=== PATIENT | male | born 1940 | race Caucasian/White ===

== ENCOUNTER → 2018-07-16 | Day surgery (SDC) | payer MEDICARE ==
[2018-07-11 15:48] VITALS: BMI 31.9
[~2018-07-16] MED LIST: LACTATED RINGERS 1,000 ML IV SCH; LIDOCAINE 1% 20 ML VIAL (10MG/ML) FOR IV START INTRADERMA PRN; LIDOCAINE 1% INJ 10MG/ML (20 ML MDV) ONE; PROPOFOL 10 MG/ML 20 ML VIAL IV ONE
[2018-07-16 07:53] VITALS: TEMP 97.6
[2018-07-16 08:07] LABS: Glucose,Whole Blood 130 mg/dL (75-99)
--- NOTE | 2018-07-16 09:00 | P.PCN ---
Date of Procedure: 07/16/18 Procedure(s) Performed: Procedure: Total colonoscopy. Preoperative diagnosis: Screening for neoplasia. Postoperative diagnosis: Diverticulosis with no evidence of acute diverticulitis , strictures, polyps or cancer. Preparation: HalfLytely prep. Sedation: Was provided by anesthesia. Brief clinical history: The patient is a 78-year-old male who is scheduled for this evaluation for screening for neoplasia age being his risk factor. There is no family history of colon cancer. He has no abdominal complaints, bleeding or anemia. He had a prior colonoscopy around 5 or 6 years ago. He believes he may have had polyps removed at that time. Procedure: With the patient on his left lateral decubitus position and after informed consent and adequate sedation, the perianal area was inspected and it did not show any fissures or fistulas. There were no masses felt on digital rectal examination. The Olympus CFQ 160L video colonoscope was then inserted in the rectum in the usual fashion and advanced to the cecum. The mucosa appeared healthy. No polyps or tumors were seen. Several diverticular orifices were seen scattered on the right side but I saw no evidence of acute diverticulitis or strictures. I retroflexed the endoscope in the rectum before the endoscope was withdrawn. The patient tolerated the procedure well. Plan: The patient was reassured. Discussed dietary measures. He will follow-up with you as planned and further screening can be planned depending on his overall health in 5 years.
[2018-07-16 09:04] VITALS: RESP 16
[2018-07-16 09:09] VITALS: BP 124/74; PULSE 70
== END ==
LOC: ORWHC2ENDO 07:14
DX: Z12.11 Encounter for screening for malignant neoplasm of colon (principal); K57.30 Diverticulosis of large intestine without perforation or abscess without bleeding; I10 Essential (primary) hypertension; E78.5 Hyperlipidemia, unspecified; E11.9 Type 2 diabetes mellitus without complications; Z79.84 Long term (current) use of oral hypoglycemic drugs; R42 Dizziness and giddiness; Z87.891 Personal history of nicotine dependence; Z79.899 Other long term (current) drug therapy
CPT/HCPCS: J2001; J2704; G0121

== ENCOUNTER 2020-07-11 12:40 | Emergency (ER) | payer MEDICARE ==
[2020-07-11 12:45] VITALS: RESP 18; TEMP 98.5
--- NOTE | 2020-07-11 13:26 | ED ---
SOB HPI - General Chief Complaint: Shortness of Breath Stated Complaint: Sent by [employer] - covid pos Time Seen by Provider: 07/11/20 12:47 Source: patient, RN notes reviewed Mode of arrival: wheelchair Limitations: no limitations - History of Present Illness Initial Comments: This is a 80-year-old male with a history of type 2 diabetes childhood asthma former smoker who quit 50 years ago who states she's had a cough for the past 11 days he's had some dizziness intermittent visual issues at night he's had a weight loss of 8-9 pounds over last 11 days due to decreased appetite. No overt problems with taste or smell of her no overt fevers chills or sweats just a persistent cough. He was seen at an urgent care clinic and had a rapid test for covid 19 which was positive does have increased coughing and perhaps short of breath with exertion. No chest pain. He is concerned however because he does have a that has a history of CML and is taking care of grandchildren at home which are special needs. He has been taking zinc as well as vitamin D3 outpatient. MD Complaint: shortness of breath, cough - Related Data Home Medications Medication Instructions Recorded Confirmed Atorvastatin [Lipitor] 5 mg PO HS 07/11/18 07/16/18 Enalapril [Vasotec] 10 mg PO BID 07/11/18 07/16/18 sitaGLIPtin [Januvia] 50 mg PO BID 07/11/18 07/16/18 Previous Rx's Medication Instructions Recorded Azithromycin [Zithromax Z-pack (6 250 mg PO DIRECTED 5 Days #6 tab 07/11/20 tabs)] Allergies Allergy/AdvReac Type Severity Reaction Status Date / Time No Known Allergies Allergy Verified 07/11/20 12:45 Review of Systems ROS Statement: Those systems with pertinent positive or pertinent negative responses have been documented in the HPI. ROS Other: All systems not noted in ROS Statement are negative. Past Medical History Past Medical History: Diabetes Mellitus, Hyperlipidemia, Hypertension Additional Past Medical History / Comment(s): hx vertigo, covid History of Any Multi-Drug Resistant Organisms: None Reported Additional Past Surgical History / Comment(s): rupesh cataract sx Additional Past Anesthesia/Blood Transfusion Reaction / Comment(s): hx of vertigo Past Psychological History: No Psychological Hx Reported Smoking Status: Never smoker Past Alcohol Use History: None Reported Past Drug Use History: None Reported General Exam - General Exam Comments Initial Comments: Is a well developed well-nourished awake alert oriented times 3 male Limitations: no limitations General appearance: alert, in no apparent distress Head exam: Present: atraumatic, normocephalic, normal inspection Eye exam: Present: normal appearance, PERRL, EOMI. Absent: scleral icterus, conjunctival injection, periorbital swelling ENT exam: Present: normal exam, mucous membranes moist Neck exam: Present: normal inspection, full ROM, other (Discharge or bruits). Absent: tenderness, meningismus, lymphadenopathy Respiratory exam: Present: rhonchi (Right lower lobe rhonchi). Absent: respiratory distress, wheezes, rales, stridor Cardiovascular Exam: Present: regular rate, normal rhythm, normal heart sounds. Absent: systolic murmur, diastolic murmur, rubs, gallop, clicks GI/Abdominal exam: Present: soft, normal bowel sounds. Absent: distended, tenderness, guarding, rebound, rigid Extremities exam: Present: normal inspection, full ROM, normal capillary refill. Absent: tenderness, pedal edema, joint swelling, calf tenderness Back exam: Present: normal inspection Neurological exam: Present: alert, oriented X3, CN II-XII intact Psychiatric exam: Present: normal affect, normal mood Skin exam: Present: warm, dry, intact, normal color. Absent: rash Course Vital Signs 07/11/20 07/11/20 12:42 13:58 Temperature 98.5 F Pulse Rate 76 Respiratory 18 18 Rate Blood Pressure 163/91 O2 Sat by Pulse 98 Oximetry Medical Decision Making - Medical Decision Making I did discuss the findings with the patient patient has had symptoms going on for 11 days at this time he was Covid-19 positive on a rapid test the workup in this department demonstrates no evidence of PE but did have a mildly elevated d- dimer. He does have evidence of a right lower lobe infiltrate however. He will be treated pneumonia with appropriate antibiotics here really take supplements that later in recovery. He'll be discharged to follow-up with his doctor and return when necessary - Lab Data Result diagrams: 07/11/20 13:40 07/11/20 13:40 Lab Results 07/11/20 07/11/20 07/11/20 Range/Units 13:40 13:40 13:40 WBC 4.2 (3.8-10.6) k/uL RBC 5.04 (4.30-5.90) m/uL Hgb 15.9 (13.0-17.5) gm/dL Hct 47.6 (39.0-53.0) % MCV 94.3 (80.0-100.0) fL MCH 31.4 (25.0-35.0) pg MCHC 33.3 (31.0-37.0) g/dL RDW 12.1 (11.5-15.5) % Plt Count 158 (150-450) k/uL Neutrophils % 64 % Lymphocytes % 24 % Monocytes % 8 % Eosinophils % 2 % Basophils % 1 % Neutrophils # 2.7 (1.3-7.7) k/uL Lymphocytes # 1.0 (1.0-4.8) k/uL Monocytes # 0.4 (0-1.0) k/uL Eosinophils # 0.1 (0-0.7) k/uL Basophils # 0.0 (0-0.2) k/uL PT 9.7 (9.0-12.0) sec INR 0.9 (<1.2) APTT 22.9 (22.0-30.0) sec D-Dimer 0.93 H (<0.60) mg/L FEU Sodium 136 L (137-145) mmol/L Potassium 4.6 (3.5-5.1) mmol/L Chloride 104 (98-107) mmol/L Carbon Dioxide 26 (22-30) mmol/L Anion Gap 6 mmol/L BUN 14 (9-20) mg/dL Creatinine 0.77 (0.66-1.25) mg/dL Est GFR (CKD-EPI)AfAm >90 (>60 ml/min/1.73 sqM) Est GFR (CKD-EPI)NonAf 87 (>60 ml/min/1.73 sqM) Glucose 97 (74-99) mg/dL Plasma Lactic Acid Lawrence (0.7-2.0) mmol/L Calcium 8.6 (8.4-10.2) mg/dL Magnesium 2.1 (1.6-2.3) mg/dL Total Bilirubin 0.7 (0.2-1.3) mg/dL AST 41 (17-59) U/L ALT 52 H (4-49) U/L Alkaline Phosphatase 65 (38-126) U/L Lactate Dehydrogenase 538 (313-618) U/L Creatine Kinase 64 (55-170) U/L Troponin I (0.000-0.034) ng/mL C-Reactive Protein 9.3 (<10.0) mg/L NT-Pro-B Natriuret Pep pg/mL Total Protein 6.7 (6.3-8.2) g/dL Albumin 4.1 (3.5-5.0) g/dL Influenza Type A RNA (Not Detectd) Influenza Type B (PCR) (Not Detectd) 07/11/20 07/11/20 07/11/20 Range/Units 13:40 13:40 13:40 WBC (3.8-10.6) k/uL RBC (4.30-5.90) m/uL Hgb (13.0-17.5) gm/dL Hct (39.0-53.0) % MCV (80.0-100.0) fL MCH (25.0-35.0) pg MCHC (31.0-37.0) g/dL RDW (11.5-15.5) % Plt Count (150-450) k/uL Neutrophils % % Lymphocytes % % Monocytes % % Eosinophils % % Basophils % % Neutrophils # (1.3-7.7) k/uL Lymphocytes # (1.0-4.8) k/uL Monocytes # (0-1.0) k/uL Eosinophils # (0-0.7) k/uL Basophils # (0-0.2) k/uL PT (9.0-12.0) sec INR (<1.2) APTT (22.0-30.0) sec D-Dimer (<0.60) mg/L FEU Sodium (137-145) mmol/L Potassium (3.5-5.1) mmol/L Chloride (98-107) mmol/L Carbon Dioxide (22-30) mmol/L Anion Gap mmol/L BUN (9-20) mg/dL Creatinine (0.66-1.25) mg/dL Est GFR (CKD-EPI)AfAm (>60 ml/min/1.73 sqM) Est GFR (CKD-EPI)NonAf (>60 ml/min/1.73 sqM) Glucose (74-99) mg/dL Plasma Lactic Acid Lawrence 1.0 (0.7-2.0) mmol/L Calcium (8.4-10.2) mg/dL Magnesium (1.6-2.3) mg/dL Total Bilirubin (0.2-1.3) mg/dL AST (17-59) U/L ALT (4-49) U/L Alkaline Phosphatase (38-126) U/L Lactate Dehydrogenase (313-618) U/L Creatine Kinase (55-170) U/L Troponin I <0.012 (0.000-0.034) ng/mL C-Reactive Protein (<10.0) mg/L NT-Pro-B Natriuret Pep 64 pg/mL Total Protein (6.3-8.2) g/dL Albumin (3.5-5.0) g/dL Influenza Type A RNA (Not Detectd) Influenza Type B (PCR) (Not Detectd) 07/11/20 Range/Units 13:40 WBC (3.8-10.6) k/uL RBC (4.30-5.90) m/uL Hgb (13.0-17.5) gm/dL Hct (39.0-53.0) % MCV (80.0-100.0) fL MCH (25.0-35.0) pg MCHC (31.0-37.0) g/dL RDW (11.5-15.5) % Plt Count (150-450) k/uL Neutrophils % % Lymphocytes % % Monocytes % % Eosinophils % % Basophils % % Neutrophils # (1.3-7.7) k/uL Lymphocytes # (1.0-4.8) k/uL Monocytes # (0-1.0) k/uL Eosinophils # (0-0.7) k/uL Basophils # (0-0.2) k/uL PT (9.0-12.0) sec INR (<1.2) APTT (22.0-30.0) sec D-Dimer (<0.60) mg/L FEU Sodium (137-145) mmol/L Potassium (3.5-5.1) mmol/L Chloride (98-107) mmol/L Carbon Dioxide (22-30) mmol/L Anion Gap mmol/L BUN (9-20) mg/dL Creatinine (0.66-1.25) mg/dL Est GFR (CKD-EPI)AfAm (>60 ml/min/1.73 sqM) Est GFR (CKD-EPI)NonAf (>60 ml/min/1.73 sqM) Glucose (74-99) mg/dL Plasma Lactic Acid Lawrence (0.7-2.0) mmol/L Calcium (8.4-10.2) mg/dL Magnesium (1.6-2.3) mg/dL Total Bilirubin (0.2-1.3) mg/dL AST (17-59) U/L ALT (4-49) U/L Alkaline Phosphatase (38-126) U/L Lactate Dehydrogenase (313-618) U/L Creatine Kinase (55-170) U/L Troponin I (0.000-0.034) ng/mL C-Reactive Protein (<10.0) mg/L NT-Pro-B Natriuret Pep pg/mL Total Protein (6.3-8.2) g/dL Albumin (3.5-5.0) g/dL Influenza Type A RNA Not Detected (Not Detectd) Influenza Type B (PCR) Not Detected (Not Detectd) - EKG Data -: EKG Interpreted by Me EKG shows normal: sinus rhythm EKG Comments: Was sinus rhythm a 65. Interval 148 QRS duration 80 QT since QTC 390/[address]-T wave changes - Radiology Data Radiology results: report reviewed, image reviewed (I did review the imaging and report x-ray negative for acute findings CAT scan shows no evidence of PE) Disposition Clinical Impression: Right lower lobe pneumonia, COVID-19 Disposition: HOME SELF-CARE Condition: Good Instructions (If sedation given, give patient instructions): Community Acquired Pneumonia (ED), Viral Pneumonia (ED) Prescriptions: Azithromycin [Zithromax Z-pack (6 tabs)] 250 mg PO DIRECTED 5 Days #6 tab Is patient prescribed a controlled substance at d/c from ED?: No Referrals: Hansel Leal MD [Primary Care Provider] - 1-2 days
--- NOTE | 2020-07-11 13:47 | XR ---
EXAMINATION TYPE: XR chest 1V DATE OF EXAM: 07/11/2020 COMPARISON: NONE HISTORY: Difficulty breathing. Positive COVID. TECHNIQUE: Single AP portable frontal upright view of the chest is obtained. FINDINGS: There is chronic parenchymal changes bilaterally without suspicious focal air space opacit y, pleural effusion, or pneumothorax seen. Slightly elevated left hemidiaphragm. The cardiac silhouet te size is within normal limits. The osseous structures are demineralized. IMPRESSION: Chronic changes without suspicious acute infiltrate.
[2020-07-11 14:30] LABS: Basophils % (A) 1 %; Eosinophils # (A) 0.1 k/uL (0-0.7); Eosinophils % (A) 2 %; HCT 47.6 % (39.0-53.0); HGB 15.9 gm/dL (13.0-17.5); Lymphocytes % (A) 24 %; MCH 31.4 pg (25.0-35.0); MCHC 33.3 g/dL (31.0-37.0); MCV 94.3 fL (80.0-100.0); Monocytes # (A) 0.4 k/uL (0-1.0); Monocytes % (A) 8 %; Neutrophils # (A) 2.7 k/uL (1.3-7.7); Neutrophils % (A) 64 %; Platelet Count 158 k/uL (150-450); RBC 5.04 m/uL (4.30-5.90); RDW 12.1 % (11.5-15.5); WBC 4.2 k/uL (3.8-10.6)
[2020-07-11 14:46] LABS: ALT 52 U/L (4-49); AST 41 U/L (17-59); African American GFR (CKD) >90 (>60 ml/min/1.73 sqM); Albumin 4.1 g/dL (3.5-5.0); Alkaline Phosphatase 65 U/L (38-126); Anion Gap 6 mmol/L; Blood Urea Nitrogen 14 mg/dL (9-20); Calcium 8.6 mg/dL (8.4-10.2); Carbon Dioxide 26 mmol/L (22-30); Chloride 104 mmol/L (98-107); Creatine Kinase 64 U/L (55-170); Glucose 97 mg/dL (74-99); LDH 538 U/L (313-618); Magnesium 2.1 mg/dL (1.6-2.3); Non-African American GFR(CKD) 87 (>60 ml/min/1.73 sqM); Potassium 4.6 mmol/L (3.5-5.1); Sodium 136 mmol/L (137-145); Total Bilirubin 0.7 mg/dL (0.2-1.3); Total Protein 6.7 g/dL (6.3-8.2)
[2020-07-11 14:47] LABS: INR 0.9 (<1.2); Partial Thromboplastin Time 22.9 sec (22.0-30.0); Prothrombin Time 9.7 sec (9.0-12.0)
[2020-07-11 14:54] LABS: D-Dimer 0.93 mg/L FEU (<0.60)
[2020-07-11 15:00] LABS: C Reactive Protein 9.3 mg/L (<10.0)
--- NOTE | 2020-07-11 15:21 | CT ---
EXAMINATION TYPE: CT angio chest DATE OF EXAM: 07/11/2020 COMPARISON: None HISTORY: Cough, shortness of breath and dizziness. CT DLP: 470.9 mGycm Automated exposure control for dose reduction was used. CONTRAST: Performed with IV Contrast, patient injected with 64ml mL of Isovue 370. There are 3-D post processed images. There is 3 cm area of interstitial reticular infiltrate anterior right upper lobe. There is 8 x 4 cm area of subpleural interstitial infiltrate right lower lobe posteriorly adjacent to the chest wall. T here is no pleural effusion. I see no evidence of a solid pulmonary mass. There is no mediastinal adenopathy. Thoracic aorta is intact. There is no aneurysm or dissection. The re are no hilar masses. Heart size is normal. There is no pericardial effusion. There is normal contrast opacification of the pulmonary arteries. There are no filling defects. The s ternum is intact. Thoracic spine is intact. There is spurring in the thoracic spine. There is no comp ression fracture. Upper abdominal soft tissues are intact. IMPRESSION: No evidence of pulmonary embolism. Right side pulmonary interstitial infiltrate consistent with inflammatory disease.
[2020-07-11] MEDS ORDERED: cefTRIAXone IN SWFI 1,000 MG/10 ML SYRINGE IVP STA (15:41)
[2020-07-11] MEDS ORDERED: AZITHROMYCIN 500 MG TAB PO STA (15:42)
[2020-07-11 16:06] VITALS: BP 121/84; PULSE 61
[2020-07-11 23:14] LABS: Ferritin 577.4 ng/mL (22.0-322.0)
== END 2020-07-11 16:19 | disposition home or self-care (01) ==
LOC: EC 12:40
DX: U07.1 COVID-19 (principal); J18.9 Pneumonia, unspecified organism; R79.89 Other specified abnormal findings of blood chemistry; I10 Essential (primary) hypertension; E11.9 Type 2 diabetes mellitus without complications; E78.5 Hyperlipidemia, unspecified; Z79.899 Other long term (current) drug therapy; Z79.84 Long term (current) use of oral hypoglycemic drugs; Z87.891 Personal history of nicotine dependence
CPT/HCPCS: 36415; 93005; 85379; 83880; 80053; 82728; 82550; 83605; 83615; 83735; 84484; 85025; 85610; 85730; 86140; 87040; 87502; 84145; 71045; 71275; 99285; 96374; U0003; J0696; Q9967

== ENCOUNTER → 2022-10-10 | Outpatient (CLI) | payer MEDICARE | END | disposition home or self-care (01) | LOC: LABWHC1 16:31 | PROVIDERS: ATTEND Surgery Plastic and Reconstructive Surgery | DX: Z01.89 Encounter for other specified special examinations (principal); R94.31 Abnormal electrocardiogram [ECG] [EKG] | CPT/HCPCS: 36415; 93005 ==

== ENCOUNTER → 2022-10-19 | Outpatient (CLI) | payer MEDICARE ==
--- NOTE | 2022-10-19 13:55 | US ---
EXAMINATION TYPE: US groin RT DATE OF EXAM: 10/19/2022 COMPARISON: NONE CLINICAL HISTORY: K40.90 UNILATERAL INGUINAL HERNIA. TECHNIQUE: right groin scanned, left scanned for comparison FINDINGS: +++peristalsing bowel seen within the right lower quadrant, more so than left. No break s een within the abd wall, no hernia identified. IMPRESSION: Peristalsing bowel in the right lower quadrant, No evidence for hernia. Consider complet e evaluation with CT.
== END | disposition home or self-care (01) ==
LOC: RADUSWWP 13:00
PROVIDERS: ATTEND Surgery Plastic and Reconstructive Surgery
DX: K40.90 Unilateral inguinal hernia, without obstruction or gangrene, not specified as recurrent (principal)

== ENCOUNTER 2023-02-22 09:53 | Day surgery (SDC) | payer MEDICARE ==
[2023-02-20 10:52] VITALS: BMI 28.7
[~2023-02-22 09:53] MED LIST changes: +ACETAMINOPHEN TAB 500 MG TAB PO PRN; +DEXAMETHASONE SOD PHOSPHATE 4 MG/ML 1 ML VIAL IV ONE; +HEPARIN SODIUM,PORCINE/PF 5,000 UNIT/0.5 ML SYRINGE SQ PRN; +HYDROmorphone 0.5 MG/0.5 ML SYRINGE IVP PRN; +LIDOCAINE 1% (10MG/ML) FOR IV START INTRADERMA PRN; -LIDOCAINE 1% 20 ML VIAL (10MG/ML) FOR IV START INTRADERMA PRN; -LIDOCAINE 1% INJ 10MG/ML (20 ML MDV) ONE; +ONDANSETRON 4 MG/2 ML VIAL IVP ONE; +ONDANSETRON 4 MG/2 ML VIAL IVP PRN; -PROPOFOL 10 MG/ML 20 ML VIAL IV ONE; +droPERidol 5 MG/2 ML VIAL IVP ONE
[2023-02-22] MEDS ORDERED: TAMSULOSIN 0.4 MG CAP.ER.24H PO STA (10:43)
--- NOTE | 2023-02-22 10:53 | P.GSHP ---
History of Present Illness H&P Date: 02/22/23 CHIEF COMPLAINT: Inguinal hernia, right. HISTORY OF PRESENT ILLNESS: The patient is a 82-year-old male who presents with a history of swelling and pain along the right groin. He has noted increased swelling including pain of the area. Now he presents for repair of his inguinal hernia. PAST MEDICAL HISTORY: Please see list. PAST SURGICAL HISTORY: Please see list. MEDICATIONS: Please see list. ALLERGIES: Please see list. SOCIAL HISTORY: No illicit drug use FAMILY HISTORY: No reports of Crohn disease or ulcerative colitis. REVIEW OF ORGAN SYSTEMS: CONSTITUTIONAL: No reports of fevers or chills. No reports of weight loss despite prior attempts. GI: Denies any blood in stools or constipation. PHYSICAL EXAM: VITAL SIGNS: Stable GENERAL: Well-developed pleasant in no acute distress. HEENT: No scleral icterus. Extraocular movements grossly intact. Moist buccal mucosa. NECK: Supple without lymphadenopathy. CHEST: Unlabored respirations. Equal bilateral excursions. CARDIOVASCULAR: Regular rate and rhythm. Distal 2+ pulses. ABDOMEN: Soft, nondistended. No peritoneal signs. Moderate tenderness right swelling along the right groin MUSCULOSKELETAL: No clubbing, cyanosis, or edema. ASSESSMENT: 1. Inguinal hernia, right initial and symptomatic. PLAN: 1. Recommend proceeding robotic inguinal repair with mesh with possible bilateral approach. 2. Benefits and risks of surgical intervention was discussed including possibility of open technique. 3. DVT prophylaxis. 4. Antibiotic prophylaxis. 5. Non narcotic pain management including abdominal wall block described 6. Blood sugar glucose described. 7. Weight loss management described. Past Medical History Past Medical History: Diabetes Mellitus, Hyperlipidemia, Hypertension Additional Past Medical History / Comment(s): Vertigo. Dry skin. History of Any Multi-Drug Resistant Organisms: None Reported Additional Past Surgical History / Comment(s): Bilateral cataract surgery. Past Anesthesia/Blood Transfusion Reactions: No Reported Reaction Additional Past Anesthesia/Blood Transfusion Reaction / Comment(s): Vertigo. Past Psychological History: No Psychological Hx Reported Additional Psychological History / Comment(s): Anxiety about vertigo. Smoking Status: Former smoker Past Alcohol Use History: None Reported Additional Past Alcohol Use History / Comment(s): Quit smoking over 30 yrs ago. Past Drug Use History: None Reported - Past Family History Brother(s) Family Medical History: Cancer Additional Family Medical History / Comment(s): Liver cancer. Medications and Allergies Home Medications Medication Instructions Recorded Confirmed Type Atorvastatin [Lipitor] 5 mg PO HS 07/11/18 02/20/23 History Enalapril [Vasotec] 10 mg PO BID 07/11/18 02/20/23 History sitaGLIPtin [Januvia] 50 mg PO BID 07/11/18 02/20/23 History Hair Skin Nails (Unknown Dose) 1 tab PO DAILY 02/20/23 02/20/23 History Multivitamins, Thera [Multivitamin 1 tab PO DAILY 02/20/23 02/20/23 History (formulary)] Vitamin D (Unknown Dose) 1 tab PO DAILY 02/20/23 02/20/23 History Vitamin E (Unknown Dose) 1 tab PO DAILY 02/20/23 02/20/23 History Allergies Allergy/AdvReac Type Severity Reaction Status Date / Time No Known Allergies Allergy Verified 02/20/23 10:31 Surgical - Exam Vital Signs Temp Pulse Resp BP Pulse Ox 98.0 F 71 16 149/72 97 02/22/23 10:34 02/22/23 10:34 02/22/23 10:34 02/22/23 10:34 02/22/23 10:34
[2023-02-22 10:59] LABS: Glucose,Whole Blood 126 mg/dL (70-110)
[2023-02-22 11:03] LABS: Basophils % (A) 1 %; Eosinophils # (A) 0.2 k/uL (0-0.7); Eosinophils % (A) 4 %; HCT 46.5 % (39.0-53.0); HGB 15.7 gm/dL (13.0-17.5); Lymphocytes # (A) 1.4 k/uL (1.0-4.8); Lymphocytes % (A) 24 %; MCH 31.5 pg (25.0-35.0); MCHC 33.8 g/dL (31.0-37.0); MCV 93.2 fL (80.0-100.0); Mean Platelet Volume 7.1; Monocytes # (A) 0.5 k/uL (0-1.0); Monocytes % (A) 8 %; Neutrophils # (A) 3.5 k/uL (1.3-7.7); Neutrophils % (A) 59 %; Platelet Count 202 k/uL (150-450); RBC 4.99 m/uL (4.30-5.90); RDW 12.5 % (11.5-15.5); WBC 5.9 k/uL (3.8-10.6)
[2023-02-22] MEDS ORDERED: fentaNYL (PF) 50 MCG/1 ML VIAL IV ONE (11:18)
[2023-02-22] MEDS ORDERED: MIDAZOLAM 2 MG/2 ML VIAL IV ONE (11:18)
[2023-02-22 11:26] LABS: ALT 59 U/L (4-49); AST 41 U/L (17-59); African American GFR (CKD) >90 (>60 ml/min/1.73 sqM); Albumin 4.3 g/dL (3.5-5.0); Alkaline Phosphatase 49 U/L (38-126); Anion Gap 7 mmol/L; Blood Urea Nitrogen 14 mg/dL (9-20); Carbon Dioxide 28 mmol/L (22-30); Chloride 105 mmol/L (98-107); Glucose 130 mg/dL (74-99); Non-African American GFR(CKD) 84 (>60 ml/min/1.73 sqM); Potassium 4.9 mmol/L (3.5-5.1); Sodium 140 mmol/L (137-145); Total Bilirubin 0.9 mg/dL (0.2-1.3); Total Protein 6.9 g/dL (6.3-8.2)
[2023-02-22] MEDS ORDERED: ROCURONIUM 10 MG/ML (5 ML VIAL) IV ONE (11:31)
[2023-02-22] MEDS ORDERED: PHENYLEPHRINE-0.9% NACL SYG 1,000 MCG/10 ML SYRINGE ONE (11:31)
[2023-02-22] MEDS ORDERED: GLYCOPYRROLATE 0.2 MG/ML 2 ML VIAL ONE (11:31)
[2023-02-22] MEDS ORDERED: SUCCINYLCHOLINE CHLORIDE 200 MG/10 ML VIAL IV ONE (11:31)
[2023-02-22] MEDS ORDERED: ROPIVACAINE 5 MG/ML 30 ML VIAL ONE (11:31)
[2023-02-22] MEDS ORDERED: fentaNYL (PF) 50 MCG/ML 2 ML AMP ONE (11:31)
[2023-02-22] MEDS ORDERED: ePHEDrine 50 MG/ML 1 ML VIAL ONE (11:31)
[2023-02-22] MEDS ORDERED: PROPOFOL 10 MG/ML 20 ML VIAL IV ONE (11:31)
[2023-02-22] MEDS ORDERED: LIDOCAINE 2% INJ 20 MG/ML (2 ML VIAL) ONE (11:31)
[2023-02-22] MEDS ORDERED: SODIUM CHLORIDE 0.9% (PF) 10 ML VIAL ONE (11:31)
[2023-02-22] MEDS ORDERED: NEOSTIGMINE 1 MG/ML 10 ML VIAL ONE (11:31)
[2023-02-22] MEDS ORDERED: LIDOCAINE 2%-EPI 1:100,000 20 ML VIAL SQ ONE (11:58)
[2023-02-22] MEDS ORDERED: LACTATED RINGERS 1,000 ML IV ONE (12:45)
--- NOTE | 2023-02-22 13:10 | P.ANPRN ---
Procedure Note - Anesthesia - Nerve Block Performed Bilateral Erector Spinae Time Out Performed: Yes (11:18) Date of Procedure: 02/22/23 Procedure Start Time: Procedure Stop Time: Location of Patient: PreOp Indication: Acute Post-Operative Pain, Requested by Surgeon (Dr Gamboa) Sedation Type: Sedate with meaningful contact maintained Preparation: Sterile Prep Position: Prone Catheter: None Needle Types: Pajunk Needle Gauge: 21 Ultrasound used to visualize needle placement: Yes Ultrasound used to observe medication spread: Yes Injectate: 0.5% Ropivacaine (see comment for volume) (15cc +10cc PF Normal saline each side) Blood Aspirated: No Pain Paresthesia on Injection Noted: No Resistance on Injection: Normal Image Stored and Saved: Yes Events: Uneventful and Well Tolerated
[2023-02-22 13:30] VITALS: TEMP 97
[2023-02-22 13:36] LABS: Glucose,Whole Blood 214 mg/dL (70-110)
[2023-02-22] MEDS ORDERED: ONDANSETRON 4 MG/2 ML VIAL IVP ONE (14:04)
--- NOTE | 2023-02-22 14:12 | P.OP ---
Date of Procedure: 02/22/23 Description of Procedure: SURGEON: HERB CHEN MD PREOPERATIVE DIAGNOSES: 1. Large right inguinal hernia, initial POSTOPERATIVE DIAGNOSES: 1. Large right inguinal hernia, initial, with incarceration and small bowel obstruction OPERATION: 1. Robotic-assisted da Jonathan Xi laparoscopic reduction repair of initial incarcerated right indirect inguinal hernia with mesh, 11.[address] ANESTHESIA: General with local anesthetic ESTIMATED BLOOD LOSS: 5 mL. SPECIMENS: 1. Incarcerated right inguinal hernia sac with excision of lipoma COMPLICATIONS: None. FINDINGS: 1. Incarcerated right inguinal hernia over 5 x 6 cm, Nyhus IV, with hernia sac completely resected INDICATIONS: The patient is a 82-year-old male who presents with history of initial right inguinal hernia. He reports changes in bowel habits as a result. Now he presents for definitive surgical intervention. Laparoscopic versus open and robotic approaches were discussed including bilateral approach. Benefits and risks including bleeding, infection, chronic groin pain, sterility were reviewed. Placement of mesh was also described. Informed consent was obtained. DESCRIPTION: In the preoperative area, an abdominal block was placed per anesthesia. The patient was brought to the operating room and initially laid in supine position. The abdomen had been prepped and draped in standard sterile fashion. Ioban draping was also placed. Prior to incision, a timeout protocol was confirmed with surgical team regarding patient's name including procedures to be performed. Initial positioning for the robotic assisted ports were selected 20 cm superior to the target anatomy. A 0 degree 5 mm laparoscopic trocar entry was performed at the left upper quadrant. The abdomen was insufflated to 15 mmHg which he tolerated well. Diagnostic laparoscopy demonstrated no injury to bowel, viscera or mesentery. Along the right groin, a large indirect hernia involving incarcerated small bowel was found. The appendix and cecum was being pulled into the hernia sac. Separately, along the left groin was completely secured by the sigmoid colon with adhesions. Next, along the epigastrium, 8 mm robot trocar was placed. An 8-mm robotic trocar was placed under direct visualization at the right upper quadrant. An 8 mm port was placed at the left upper quadrant. All trocars were positioned between 10-cm apart from each other. The [employer] XI robot was primed, draped, prepared for docking along upper abdomen of the patient. The patient was positioned 16 steep Trendelenburg position. I then went to the goAct Xi console. The assistant manager bilingual was at bedside for exchange of the robot arms and equipment. Attention was brought to the right groin. A large right inguinal defect was confirmed as the small intestine was reduced from the right groin. Next, the right groin defect was measured 4 x 3-cm hernia with the sac extending to the scrotum. A large indirect hernia was confirmed, Nyhus type IV. The right inguinal hernia sac was evaginated whereby the peritoneum was scored using Endo scissors with cautery and vessel sealer . As the hernia sac extended into the groin, partial resection of the sac was done. The peritoneal sac of the hernia was stripped. The sac was resected and then passed off for further pathological analysis. The size of the hernia defect was 4 cm x 3 cm with intraoperative films obtained. Using a 2-0 VLOC nonabsorbable, the peritoneal defect of the right inguinal hernia site was closed using a running suture. The defect was found to be completely closed with complete reduction of the right direct inguinal hernia was confirmed. As an onlay, an 11.[address] mesh by Bridg was cut in half and entered into the abdominal cavity via the 8 mm trocar. The mesh was tacked to the pelvis using 2-0 VLOC 9-inch length sutures. Dense adhesions of the cecum and appendix was identified with appendicolith found. The cecum and appendix were mobilized from the pelvis. Secondary to appendicolith found with chronic changes of chronic appendicitis, the appendix was prepared for resection. The mesoappendix and appendix were mobilized. The trocar along the left upper quadrant were exchanged for 12 mm port. A blue 45 mm staple load was fired across the base of the appendix. A final endoscopic imaging was obtained. The robot was undocked from the patient's bedside. I then rescrubbed into the case. Insufflation was released from the abdominal cavity and all instruments were removed from the abdominal cavity. Pressure was applied along the left groin. The rest of incisions were reapproximated using 4-0 Monocryl in a running subcuticular fashion. Local anesthetic was placed along the incision including for a bilateral groin block. Incisions were cleansed using dilute hydrogen peroxide. Liquid glue was applied to the skin. At the end of the procedure, the needle, sponge and instrument counts had been verified correct by the surgical services tech. The patient had tolerated the procedure well and was taken to the postanesthesia care unit in stable condition. Plan - Discharge Summary Discharge Rx Participant: Yes New Discharge Prescriptions: New Simethicone [Gas-X] 125 mg PO AC-TID PRN #20 capsule PRN Reason: Pain Acetaminophen Tab [Tylenol Tab] 1,000 mg PO Q6HR PRN #30 tablet PRN Reason: Pain Continue Atorvastatin [Lipitor] 5 mg PO HS sitaGLIPtin [Januvia] 50 mg PO BID Enalapril [Vasotec] 10 mg PO BID Hair Skin Nails (Unknown Dose) 1 tab PO DAILY Multivitamins, Thera [Multivitamin (formulary)] 1 tab PO DAILY Vitamin D (Unknown Dose) 1 tab PO DAILY Vitamin E (Unknown Dose) 1 tab PO DAILY Discharge Medication List Atorvastatin [Lipitor] 5 mg PO HS 07/11/18 [History] Enalapril [Vasotec] 10 mg PO BID 07/11/18 [History] sitaGLIPtin [Januvia] 50 mg PO BID 07/11/18 [History] Hair Skin Nails (Unknown Dose) 1 tab PO DAILY 02/20/23 [History] Multivitamins, Thera [Multivitamin (formulary)] 1 tab PO DAILY 02/20/23 [History] Vitamin D (Unknown Dose) 1 tab PO DAILY 02/20/23 [History] Vitamin E (Unknown Dose) 1 tab PO DAILY 02/20/23 [History] Acetaminophen Tab [Tylenol Tab] 1,000 mg PO Q6HR PRN #30 tablet 02/22/23 [Rx] Simethicone [Gas-X] 125 mg PO AC-TID PRN #20 capsule 02/22/23 [Rx]
[2023-02-22] MEDS ORDERED: KETOROLAC 15 MG/ML 1 ML VIAL IVP ONE (14:17)
[2023-02-22 14:49] LABS: Glucose,Whole Blood 218 mg/dL (70-110)
[2023-02-22] MEDS ORDERED: HYDROcodone/APAP 5-325MG 1 EACH TAB ONE (15:00)
[2023-02-22] MEDS ORDERED: HYDROcodone/APAP 5-325MG 1 EACH TAB PO ONE (15:01)
[2023-02-22 15:09] VITALS: PULSE 89
[2023-02-22 15:35] VITALS: BP 123/69; RESP 18
== END 2023-02-22 18:05 | disposition home or self-care (01) ==
LOC: OR 09:53
PROVIDERS: ATTEND Surgery Plastic and Reconstructive Surgery
DX: K40.30 Unilateral inguinal hernia, with obstruction, without gangrene, not specified as recurrent (principal); G89.18 Other acute postprocedural pain; D17.6 Benign lipomatous neoplasm of spermatic cord; E11.9 Type 2 diabetes mellitus without complications; E78.5 Hyperlipidemia, unspecified; I10 Essential (primary) hypertension; Z87.891 Personal history of nicotine dependence; Z80.0 Family history of malignant neoplasm of digestive organs; Z79.84 Long term (current) use of oral hypoglycemic drugs; Z79.899 Other long term (current) drug therapy
CPT/HCPCS: 64999; 88304; 80053; 85025; 49650; C1781; J2250; J0330; J1100; J2710; J0690; J2405; J3010 ×2; J2795; J1885; J2370; J2704; J1644; J2001

== ENCOUNTER → 2023-10-01 | Outpatient (CLI) | payer MEDICARE ==
--- NOTE | 2023-10-01 15:20 | US ---
EXAMINATION TYPE: US venous doppler duplex LE RT DATE OF EXAM: 10/01/2023 3:10 PM COMPARISON: NONE CLINICAL INDICATION: Male, 83 years old with history of RLE; M79.661 PAIN IN RIGHT LOWER LEG; right l ateral calf pain SIDE PERFORMED: right TECHNIQUE: The lower extremity deep venous system is examined utilizing real time linear array sonog manisha with graded compression, doppler sonography and color-flow sonography. VESSELS IMAGED: Common Femoral Vein Deep Femoral Vein Greater Saphenous Vein * Femoral Vein Popliteal Vein Small Saphenous Vein * Proximal Calf Veins (* superficial vessels) Right Leg: No evidence of DVT IMPRESSION: Grayscale, color doppler, spectral doppler imaging performed of the deep veins of the lo wer extremities. There is normal flow, compressibility, vascular waveforms.
== END | disposition home or self-care (01) ==
LOC: RADUSWWP 14:47
PROVIDERS: ATTEND Family Medicine
DX: M79.661 Pain in right lower leg (principal)

== ENCOUNTER 2024-06-05 09:04 | Day surgery (SDC) | payer MEDICARE ==
--- NOTE | 2024-06-05 08:32 | P.GSHP ---
History of Present Illness H&P Date: 06/05/24 CHIEF COMPLAINT: Inguinal hernia, right. HISTORY OF PRESENT ILLNESS: The patient is a 83-year-old male who presents with a history of swelling and pain along the right groin. He has had previous repair. He's noted increased swelling including pain of the area. Now he presents for repair of his inguinal hernia. PAST MEDICAL HISTORY: Please see list. PAST SURGICAL HISTORY: Please see list. MEDICATIONS: Please see list. ALLERGIES: Please see list. SOCIAL HISTORY: No illicit drug use FAMILY HISTORY: No reports of Crohn disease or ulcerative colitis. REVIEW OF ORGAN SYSTEMS: CONSTITUTIONAL: No reports of fevers or chills. No reports of weight loss despite prior attempts. GI: Denies any blood in stools or constipation. PHYSICAL EXAM: VITAL SIGNS: Stable GENERAL: Well-developed pleasant male in no acute distress. HEENT: No scleral icterus. Extraocular movements grossly intact. Moist buccal mucosa. NECK: Supple without lymphadenopathy. CHEST: Unlabored respirations. Equal bilateral excursions. CARDIOVASCULAR: Regular rate and rhythm. Distal 2+ pulses. ABDOMEN: Soft, nondistended. No peritoneal signs. Swelling right groin MUSCULOSKELETAL: No clubbing, cyanosis, or edema. ASSESSMENT: 1. Inguinal hernia, right, recurrent PLAN: 1. Recommend proceeding with a robotic inguinal repair with mesh with possible bilateral approach. 2. Benefits and risks of surgical intervention was discussed including possibility of open technique. 3. DVT prophylaxis. 4. Antibiotic prophylaxis. 5. Non narcotic pain management including abdominal wall block described 6. Blood sugar glucose described. 7. Weight loss management described. Past Medical History Past Medical History: Diabetes Mellitus, Hyperlipidemia, Hypertension Additional Past Medical History / Comment(s): Vertigo. Dry skin. Hernia right side groin, right leg neuropathy History of Any Multi-Drug Resistant Organisms: None Reported Past Surgical History: Hernia Repair Additional Past Surgical History / Comment(s): Bilateral cataract surgery. Prior hernia repair 2022 Past Anesthesia/Blood Transfusion Reactions: No Reported Reaction Additional Past Anesthesia/Blood Transfusion Reaction / Comment(s): Vertigo. Smoking Status: Former smoker - Past Family History Brother(s) Family Medical History: Cancer Additional Family Medical History / Comment(s): Liver cancer. Medications and Allergies Home Medications Medication Instructions Recorded Confirmed Type Atorvastatin [Lipitor] 5 mg PO HS 07/11/18 05/29/24 History Enalapril [Vasotec] 10 mg PO BID 07/11/18 05/29/24 History sitaGLIPtin [Januvia] 50 mg PO DAILY 07/11/18 05/29/24 History Hair Skin Nails (Unknown Dose) 1 tab PO DAILY 02/20/23 05/29/24 History Multivitamins, Thera [Multivitamin 1 tab PO DAILY 02/20/23 05/29/24 History (formulary)] Vitamin D (Unknown Dose) 1 tab PO BID 02/20/23 05/29/24 History Vitamin E (Unknown Dose) 1 tab PO DAILY 02/20/23 05/29/24 History Acetaminophen Tab [Tylenol Tab] 1,000 mg PO Q6HR PRN #30 tablet 02/22/23 05/29/24 Rx Vitamin C 1 tab PO DAILY 05/29/24 05/29/24 History Vitamin K2 1 tab PO DAILY 05/29/24 05/29/24 History Allergies Allergy/AdvReac Type Severity Reaction Status Date / Time No Known Allergies Allergy Verified 05/29/24 14:50
[~2024-06-05 09:04] MED LIST changes: -ACETAMINOPHEN TAB 500 MG TAB PO PRN; -DEXAMETHASONE SOD PHOSPHATE 4 MG/ML 1 ML VIAL IV ONE; -HEPARIN SODIUM,PORCINE/PF 5,000 UNIT/0.5 ML SYRINGE SQ PRN; -HYDROmorphone 0.5 MG/0.5 ML SYRINGE IVP PRN; -LACTATED RINGERS 1,000 ML IV SCH; +MIDAZOLAM 2 MG/2 ML VIAL IV PRN; -ONDANSETRON 4 MG/2 ML VIAL IVP PRN; -droPERidol 5 MG/2 ML VIAL IVP ONE; +fentaNYL (PF) 50 MCG/ML 2 ML AMP IVP PRN
[2024-06-05] MEDS: IV FLUID CONTINUATION 1,000 ML IV ONE ×3 (09:45→16:36)
[2024-06-05] MEDS: LACTATED RINGERS 1,000 ML IV SCH (09:45)
[2024-06-05 09:52] LABS: Glucose,Whole Blood 133 mg/dL (70-110)
[2024-06-05] MEDS: MELOXICAM 7.5 MG TAB PO PRN (10:03)
[2024-06-05] MEDS: TAMSULOSIN 0.4 MG CAP.ER.24H PO STA (10:03)
[2024-06-05] MEDS: ACETAMINOPHEN TAB 500 MG TAB PO PRN (10:03)
[2024-06-05] MEDS: DEXAMETHASONE SOD PHOSPHATE 4 MG/ML 1 ML VIAL IV ONE (10:05)
[2024-06-05] MEDS: ONDANSETRON 4 MG/2 ML VIAL IVP PRN (10:05)
[2024-06-05 10:10] LABS: Basophils # (A) 0.1 k/uL (0-0.2); Basophils % (A) 1 %; Eosinophils # (A) 0.3 k/uL (0-0.7); Eosinophils % (A) 5 %; HCT 48.5 % (39.0-53.0); HGB 15.8 gm/dL (13.0-17.5); Lymphocytes # (A) 1.5 k/uL (1.0-4.8); Lymphocytes % (A) 23 %; MCH 30.7 pg (25.0-35.0); MCHC 32.5 g/dL (31.0-37.0); MCV 94.3 fL (80.0-100.0); Mean Platelet Volume 6.9; Monocytes # (A) 0.4 k/uL (0-1.0); Monocytes % (A) 6 %; Neutrophils # (A) 3.8 k/uL (1.3-7.7); Neutrophils % (A) 61 %; Platelet Count 213 k/uL (150-450); RBC 5.14 m/uL (4.30-5.90); RDW 12.5 % (11.5-15.5); WBC 6.3 k/uL (3.8-10.6)
[2024-06-05] MEDS: MIDAZOLAM 2 MG/2 ML VIAL IVP ONE (10:43)
[2024-06-05 11:02] LABS: ALT 41 U/L (4-49); AST 31 U/L (17-59); African American GFR (CKD) >90 (>60 ml/min/1.73 sqM); Albumin 4.1 g/dL (3.5-5.0); Alkaline Phosphatase 55 U/L (38-126); Anion Gap 7 mmol/L; Blood Urea Nitrogen 16 mg/dL (9-20); Calcium 9.2 mg/dL (8.4-10.2); Carbon Dioxide 27 mmol/L (22-30); Chloride 104 mmol/L (98-107); Glucose 139 mg/dL (74-99); Non-African American GFR(CKD) 83 (>60 ml/min/1.73 sqM); Potassium 4.4 mmol/L (3.5-5.1); Sodium 138 mmol/L (137-145); Total Bilirubin 0.8 mg/dL (0.2-1.3); Total Protein 6.4 g/dL (6.3-8.2)
[2024-06-05] MEDS: HEPARIN SODIUM,PORCINE 5,000 UNIT/ML 1 ML VIAL SQ PRN (11:03)
[2024-06-05] MEDS: LIDOCAINE 1%-EPI 1:100,000 20 ML VIAL SQ ONE ×2 (11:53→12:42)
[2024-06-05] MEDS ORDERED: ROCURONIUM 10 MG/ML (5 ML VIAL) IV ONE (12:02)
[2024-06-05] MEDS ORDERED: fentaNYL (PF) 50 MCG/ML 2 ML AMP ONE (12:02)
[2024-06-05] MEDS ORDERED: NEOSTIGMINE 1 MG/ML 10 ML VIAL ONE (12:02)
[2024-06-05] MEDS ORDERED: GLYCOPYRROLATE 0.2 MG/ML 2 ML VIAL ONE (12:02)
[2024-06-05] MEDS ORDERED: DEXAMETHASONE SOD PHOSPHATE 4 MG/ML 1 ML VIAL ONE (12:02)
[2024-06-05] MEDS ORDERED: SUCCINYLCHOLINE CHLORIDE 200 MG/10 ML VIAL IV ONE (12:02)
[2024-06-05] MEDS ORDERED: SODIUM CHLORIDE 0.9% (PF) 10 ML VIAL ONE (12:02)
[2024-06-05] MEDS ORDERED: LIDOCAINE 1% INJ 10MG/ML (20 ML MDV) ONE (12:02)
[2024-06-05] MEDS ORDERED: PROPOFOL 10 MG/ML 20 ML VIAL IV ONE (12:02)
[2024-06-05] MEDS ORDERED: ROPIVACAINE 5 MG/ML 30 ML VIAL ONE (12:02)
--- NOTE | 2024-06-05 14:24 | P.OP ---
Date of Procedure: 06/05/24 Description of Procedure: SURGEON: AIDA GAMBOA MD PREOPERATIVE DIAGNOSES: 1. Large right inguinal hernia, recurrent POSTOPERATIVE DIAGNOSES: 1. Large right inguinal hernia, recurrent with incarceration and small bowel obstruction OPERATION: 1. Robotic-assisted da Jonathan Xi laparoscopic reduction repair of initial incarcerated right indirect inguinal hernia with mesh, 10 x [address] ANESTHESIA: General with local anesthetic ESTIMATED BLOOD LOSS: 5 mL. SPECIMENS: 1. Incarcerated right inguinal hernia sac COMPLICATIONS: None. FINDINGS: 1. Incarcerated right inguinal hernia over 4 x 3 cm, Nyhus IV, incorporating small bowel with obstruction and scrotal contents INDICATIONS: The patient is a 83-year-old male who presents with recurrent right inguinal hernia. He reports changes in bowel habits as a result. Now he presents for definitive surgical intervention. Laparoscopic versus open and robotic approaches were discussed including bilateral approach. Benefits and risks including bleeding, infection, chronic groin pain, sterility were reviewed. Placement of mesh was also described. Informed consent was obtained. DESCRIPTION: In the preoperative area, an abdominal block was placed per anesthesia. The patient was brought to the operating room and initially laid in supine position. The abdomen had been prepped and draped in standard sterile fashion. Ioban draping was also placed. Prior to incision, a timeout protocol was confirmed with surgical team regarding patient's name including procedures to be performed. Initial positioning for the robotic assisted ports were selected 20 cm superior to the target anatomy. A 0 degree 5 mm laparoscopic trocar entry was performed at the left upper quadrant. The abdomen was insufflated to 15 mmHg which he tolerated well. Diagnostic laparoscopy demonstrated no injury to bowel, viscera or mesentery. Along the right groin, a large indirect hernia involving incarcerated small bowel was found. The appendix and cecum was being pulled into the hernia sac. Separately, along the left groin was completely secured by the sigmoid colon with adhesions. Next, along the epigastrium, 8 mm robot trocar was placed. An 8-mm robotic trocar was placed under direct visualization at the right upper quadrant. An 8 mm port was placed at the left upper quadrant. All trocars were positioned between 10-cm apart from each other. The [employer] XI robot was primed, draped, prepared for docking along u pper abdomen of the patient. The patient was positioned 16 steep Trendelenburg position. I then went to the [employer] Xi console. The culture media laboratory assistant was at bedside for exchange of the robot arms and equipment. Attention was brought to the right groin. A large right inguinal defect was confirmed as the small intestine was reduced from the right groin. Next, the right groin defect was measured 4 x 3-cm hernia with the sac extending to the scrotum. A large indirect hernia was confirmed, Nyhus type IV. The right inguinal hernia sac was evaginated whereby the peritoneum was scored using Endo scissors with cautery and vessel sealer . As the hernia sac extended into the groin, partial resection of the sac was done. The peritoneal sac of the hernia was stripped. The sac was resected and then passed off for further pathological analysis. The size of the hernia defect was 4 cm x 3 cm with intraoperative films obtained. Using a 2-0 VLOC nonabsorbable, the peritoneal defect of the right inguinal hernia site was closed using a running suture. The defect was found to be completely closed with complete reduction of the right direct inguinal hernia was confirmed. As an onlay, an 11.[address] mesh by [employer] was cut in half and entered into the abdominal cavity via the 8 mm trocar. The mesh was tacked to the pelvis using 2-0 VLOC 9-inch length sutures. Dense adhesions of the cecum and appendix was identified with appendicolith found. The cecum and appendix were mobilized from the pelvis. Secondary to appendicolith found with chronic changes of chronic appendicitis, the appendix was prepared for resection. The mesoappendix and appendix were mobilized. The trocar along the left upper quadrant were exchanged for 12 mm port. A blue 45 mm staple load was fired across the base of the appendix. A final endoscopic imaging was obtained. The robot was undocked from the patient's bedside. I then rescrubbed into the case. Insufflation was released from the abdominal cavity and all instruments were removed from the abdominal cavity. Pressure was applied along the left groin. The rest of incisions were reapproximated using 4-0 Monocryl in a running subcut icular fashion. Local anesthetic was placed along the incision including for a bilateral groin block. Incisions were cleansed using dilute hydrogen peroxide. Liquid glue was applied to the skin. At the end of the procedure, the needle, sponge and instrument counts had been verified correct by the surgical supplies sterilizer. The patient had tolerated the procedure well and was taken to the postanesthesia care unit in stable condition. Plan - Discharge Summary Discharge Rx Participant: No New Discharge Prescriptions: New Ibuprofen [Motrin] 600 mg PO Q8HR PRN #30 tab PRN Reason: Pain Tamsulosin [Flomax] 0.4 mg PO DAILY #5 cap Acetaminophen Tab [Tylenol Tab] 1,000 mg PO Q6HR PRN #30 tablet PRN Reason: Pain Simethicone [Gas-X] 125 mg PO AC-TID PRN #20 capsule PRN Reason: Pain Continue Atorvastatin [Lipitor] 5 mg PO HS sitaGLIPtin [Januvia] 50 mg PO DAILY Enalapril [Vasotec] 10 mg PO BID Hair Skin Nails (Unknown Dose) 1 tab PO DAILY Vitamin K2 1 tab PO DAILY Multivitamins, Thera [Multivitamin (formulary)] 1 tab PO DAILY Vitamin D (Unknown Dose) 1 tab PO BID Vitamin E (Unknown Dose) 1 tab PO DAILY Acetaminophen Tab [Tylenol] 1,000 mg PO Q6HR PRN #30 tablet PRN Reason: Pain Vitamin C 1 tab PO DAILY Discharge Medication List Atorvastatin [Lipitor] 5 mg PO HS 07/11/18 [History] Enalapril [Vasotec] 10 mg PO BID 07/11/18 [History] sitaGLIPtin [Januvia] 50 mg PO DAILY 07/11/18 [History] Hair Skin Nails (Unknown Dose) 1 tab PO DAILY 02/20/23 [History] Multivitamins, Thera [Multivitamin (formulary)] 1 tab PO DAILY 02/20/23 [History] Vitamin D (Unknown Dose) 1 tab PO BID 02/20/23 [History] Vitamin E (Unknown Dose) 1 tab PO DAILY 02/20/23 [History] Acetaminophen Tab [Tylenol] 1,000 mg PO Q6HR PRN #30 tablet 02/22/23 [Rx] Vitamin C 1 tab PO DAILY 05/29/24 [History] Vitamin K2 1 tab PO DAILY 05/29/24 [History] Acetaminophen Tab [Tylenol Tab] 1,000 mg PO Q6HR PRN #30 tablet 06/05/24 [Rx] Ibuprofen [Motrin] 600 mg PO Q8HR PRN #30 tab 06/05/24 [Rx] Simethicone [Gas-X] 125 mg PO AC-TID PRN #20 capsule 06/05/24 [Rx] Tamsulosin [Flomax] 0.4 mg PO DAILY #5 cap 06/05/24 [Rx] Follow up Appointment(s)/Referral(s): Aida Gamboa MD [STAFF PHYSICIAN] - 06/10/24 6:00 pm (TELEHEALTH) Patient Instructions/Handouts: Laparoscopic Herniorrhaphy (IP) Activity/Diet/Wound Care/Special Instructions: NO LONG DRIVES OR AIRPLANE RIDES OVER 30 MINUTES FOR THE NEXT 2 WEEKS DUE TO HIGH RISK OF PULMONARY EMBOLISM/DVTs, until Jun 19 Using antibacterial soap. No lifting over 4 pounds 4 weeks, Jul 05 May shower. No bathtub soaks for 2 weeks, Jun 19 Use ice along incisions for today to prevent swelling. Take tylenol, aleve/ibuprofen, simethicone scheduled for 3 days for best pain relief Discharge Disposition: HOME SELF-CARE
[2024-06-05 14:34] VITALS: RESP 18; TEMP 96.9
[2024-06-05] MEDS: HYDROmorphone 0.5 MG/0.5 ML SYRINGE IVP PRN (14:41)
[2024-06-05 17:04] VITALS: BP 135/77; PULSE 89
--- NOTE | 2024-06-05 19:26 | P.ANPRN ---
Procedure Note - Anesthesia - Nerve Block Performed Bilateral Erector Spinae Single Time Out Performed: Yes Date of Procedure: 06/05/24 Procedure Start Time: 10:42 Procedure Stop Time: 10:54 Location of Patient: PreOp Indication: Acute Post-Operative Pain, Requested by Surgeon Sedation Type: Sedate with meaningful contact maintained Preparation: Sterile Prep Position: Prone Needle Types: Pajunk Needle Gauge: 21 Ultrasound used to visualize needle placement: Yes Ultrasound used to observe medication spread: Yes Blood Aspirated: No Pain Paresthesia on Injection Noted: No Resistance on Injection: Normal Image Stored and Saved: Yes Events: Uneventful and Well Tolerated (Ropivacaine 0.5% 15 cc plus normal saline 10 cc plus dexamethasone 4 mg given at L1 bilaterally)
== END 2024-06-05 17:45 | disposition home or self-care (01) ==
LOC: OR 09:04
PROVIDERS: ATTEND Surgery Plastic and Reconstructive Surgery
DX: K40.90 Unilateral inguinal hernia, without obstruction or gangrene, not specified as recurrent
CPT/HCPCS: 64999; 80053; 85025; 88302

== ENCOUNTER 2024-06-21 15:53 | Emergency (ER) | payer MEDICARE ==
--- NOTE | 2024-06-21 16:27 | ED ---
General Adult HPI - General Chief complaint: Abdominal Pain Stated complaint: PostOp Pain Time Seen by Provider: 06/21/24 16:00 Source: patient, RN notes reviewed, old records reviewed Mode of arrival: ambulatory - History of Present Illness Initial comments: This is a 84-year-old male who presents to the emergency department complaining that he has incisions for his laparoscopic inguinal hernia repair 3 weeks ago for started to hurt him over the last 3 days. Patient states it is a sharp pain lasting only a few seconds and it stops and nothing seems to make it much worse. Patient states lying here currently he has no pain. Patient Nuys any nausea vomiting diarrhea. Patient Nuys any fever chills. Patient Nuys any redness or swelling. Patient denies chest pain or difficulty breathing - Related Data Home Medications Medication Instructions Recorded Confirmed Atorvastatin [Lipitor] 5 mg PO HS 07/11/18 06/05/24 Enalapril [Vasotec] 10 mg PO BID 07/11/18 06/05/24 sitaGLIPtin [Januvia] 50 mg PO DAILY 07/11/18 06/05/24 Hair Skin Nails (Unknown Dose) 1 tab PO DAILY 02/20/23 06/05/24 Multivitamins, Thera [Multivitamin 1 tab PO DAILY 02/20/23 06/05/24 (formulary)] Vitamin D (Unknown Dose) 1 tab PO BID 02/20/23 06/05/24 Vitamin E (Unknown Dose) 1 tab PO DAILY 02/20/23 06/05/24 Vitamin C 1 tab PO DAILY 05/29/24 06/05/24 Vitamin K2 1 tab PO DAILY 05/29/24 06/05/24 Previous Rx's Medication Instructions Recorded Acetaminophen Tab [Tylenol] 1,000 mg PO Q6HR PRN #30 tablet 02/22/23 Acetaminophen Tab [Tylenol Tab] 1,000 mg PO Q6HR PRN #30 tablet 06/05/24 Ibuprofen [Motrin] 600 mg PO Q8HR PRN #30 tab 06/05/24 Simethicone [Gas-X] 125 mg PO AC-TID PRN #20 capsule 06/05/24 Tamsulosin [Flomax] 0.4 mg PO DAILY #5 cap 06/05/24 Allergies Allergy/AdvReac Type Severity Reaction Status Date / Time No Known Allergies Allergy Verified 06/21/24 16:01 Review of Systems ROS Statement: Those systems with pertinent positive or pertinent negative responses have been documented in the HPI. ROS Other: All systems not noted in ROS Statement are negative. Past Medical History Past Medical History: Diabetes Mellitus, Hyperlipidemia, Hypertension Additional Past Medical History / Comment(s): Vertigo. Dry skin. Hernia right side groin, right leg neuropathy History of Any Multi-Drug Resistant Organisms: None Reported Past Surgical History: Hernia Repair Additional Past Surgical History / Comment(s): Bilateral cataract surgery. Prior hernia repair 2022 Past Anesthesia/Blood Transfusion Reactions: No Reported Reaction Additional Past Anesthesia/Blood Transfusion Reaction / Comment(s): Vertigo. Past Psychological History: No Psychological Hx Reported Smoking Status: Former smoker Past Alcohol Use History: None Reported Past Drug Use History: None Reported - Past Family History Brother(s) Family Medical History: Cancer Additional Family Medical History / Comment(s): Liver cancer. General Exam - General Exam Comments Initial Comments: GENERAL: Patient is well-developed and well-nourished. Patient is nontoxic and well-hy drated and is in no acute distress. ENT: Neck is soft and supple. No significant lymphadenopathy is noted. Oropharynx is clear. Moist mucous membranes. Neck has full range of motion without elici ting any pain. EYES: The sclera were anicteric and conjunctiva were pink and moist. Extraocular movements were intact and pupils were equal round and reactive to light. Eyelids were unremarkable. PULMONARY: Unlabored respirations. Good breath sounds bilaterally. No audible rales rhonchi or wheezing was noted. CARDIOVASCULAR: There is a regular rate and rhythm without any murmurs gallops or rubs. ABDOMEN: Soft and nontender with normal bowel sounds. SKIN: Skin is clear with no lesions or rashes and otherwise unremarkable. NEUROLOGIC: Patient is alert and oriented x3. Cranial nerves II through XII are grossly intact. Motor and sensory are also intact. Normal speech, volume and content. Symmetrical smile. MUSCULOSKELETAL: Normal extremities with adequate strength and full range of motion. LYMPHATICS: No significant lymphadenopathy is noted PSYCHIATRIC: Normal psychiatric evaluation. Course Vital Signs 06/21/24 06/21/24 06/21/24 15:56 16:37 17:22 Temperature 98.2 F Pulse Rate 65 62 72 Respiratory 18 18 20 Rate Blood Pressure 170/76 154/82 152/98 O2 Sat by Pulse 97 95 98 Oximetry Medical Decision Making - Medical Decision Making Was pt. sent in by a medical professional or institution ([facility], [employer], urgent care, hospital, or half-way...) When possible be specific @ -No Did you speak to anyone other than the patient for history (EMS, parent, family, police, friend...)? What history was obtained from this source @ -No Did you review nursing and triage notes (agree or disagree)? Why? @ -I reviewed and agree with nursing and triage notes Were old charts reviewed (outside hosp., previous admission, EMS record, old EKG, old radiological studies, urgent care reports/EKG's, half-way records)? Report findings @ -No old charts were reviewed Differential Diagnosis? @ -Differential Abdominal Pain Men: Appendicitis, cholecystitis, diverticulosis, ischemic bowel, pancreatitis, hepatitis, UTI, gastroenteritis, AAA, incarcerated hernia, bowel obstruction, constipation, inflammatory bowel, hepatitis, peptic ulcer disease, splenic infarction, perforated viscus, testicular torsion, this is not meant to be an all-inclusive list EKG interpreted by me (3pts min.). @ -As above X-rays interpreted by me (1pt min.). @ -None done CT interpreted by me (1pt min.). @ -None done U/S interpreted by me (1pt. min.). @ -None done What testing was considered but not performed or refused? (CT, X-rays, U/S, labs)? Why? @ -None What meds were considered but not given or refused? Why? @ -None Did you discuss the management of the patient with other professionals (professionals i.e. [facility], [employer], lab, RT, psych nurse, clinical social worker, day care director, teacher, guest services officer, piano case maker)? Give summary @ -No Was smoking cessation discussed for >3mins.? @ -No Was critical care preformed (if so, how long)? @ -No Were there social determinants of health that impacted care today? How? (Homelessness, low income, unemployed, alcoholism, drug addiction, transportation, low edu. Level, literacy, decrease access to med. care, half-way, rehab)? @ -No Was there de-escalation of care discussed even if they declined (Discuss DNR or withdrawal of care, Hospice)? DNR status @ -No What co-morbidities impacted this encounter? (DM, HTN, Smoking, COPD, CAD, Cancer, CVA, ARF, Chemo, Hep., AIDS, mental health diagnosis, sleep apnea, morbid obesity)? @ -None Was patient admitted / discharged? Hospital course, mention meds given and route, prescriptions, significant lab abnormalities, going to OR and other pertinent info. @ -Patient had no abdominal pain on palpation. Patient was never in any distress. Patient stated he never had any pain while in the emergency department. Just prior to discharge patient indicated to me that he is also very constipated and this might be causing his pain Undiagnosed new problem with uncertain prognosis? @ -No Drug Therapy requiring intensive monitoring for toxicity (Heparin, Nitro, Insulin, Cardizem)? @ -No Were any procedures done? @ -No Diagnosis/symptom? @ -Postop pain Acute, or Chronic, or Acute on Chronic? @ -Acute Uncomplicated (without systemic symptoms) or Complicated (systemic symptoms)? @ -Complicated Side effects of treatment? @ -No Exacerbation, Progression, or Severe Exacerbation? @ -No Poses a threat to life or bodily function? How? (Chest pain, [place], [place], pneumonia, PE, COPD, DKA, ARF, appy, cholecystitis, CVA, Diverticulitis, Homicidal, Suicidal, threat to staff... and all critical care pts) @ -No - Lab Data Result diagrams: 06/21/24 16:38 06/21/24 16:38 Lab Results 06/21/24 06/21/24 06/21/24 Range/Units 16:38 16:38 16:38 WBC 7.5 (3.8-10.6) k/uL RBC 4.82 (4.30-5.90) m/uL Hgb 15.0 (13.0-17.5) gm/dL Hct 45.0 (39.0-53.0) % MCV 93.3 (80.0-100.0) fL MCH 31.0 (25.0-35.0) pg MCHC 33.3 (31.0-37.0) g/dL RDW 12.2 (11.5-15.5) % Plt Count 231 (150-450) k/uL MPV 6.9 Neutrophils % 64 % Lymphocytes % 21 % Monocytes % 6 % Eosinophils % 5 % Basophils % 1 % Neutrophils # 4.8 (1.3-7.7) k/uL Lymphocytes # 1.6 (1.0-4.8) k/uL Monocytes # 0.4 (0-1.0) k/uL Eosinophils # 0.4 (0-0.7) k/uL Basophils # 0.0 (0-0.2) k/uL Sodium 135 L (137-145) mmol/L Potassium 4.2 (3.5-5.1) mmol/L Chloride 104 (98-107) mmol/L Carbon Dioxide 25 (22-30) mmol/L Anion Gap 6 mmol/L BUN 18 (9-20) mg/dL Creatinine 0.79 (0.66-1.25) mg/dL Est GFR (CKD-EPI)AfAm >90 (>60 ml/min/1.73 sqM) Est GFR (CKD-EPI)NonAf 84 (>60 ml/min/1.73 sqM) Glucose 160 H (74-99) mg/dL Plasma Lactic Acid Lawrence 1.0 (0.7-2.0) mmol/L Calcium 9.4 (8.4-10.2) mg/dL Total Bilirubin 0.5 (0.2-1.3) mg/dL AST 27 (17-59) U/L ALT 33 (4-49) U/L Alkaline Phosphatase 51 (38-126) U/L Total Protein 6.2 L (6.3-8.2) g/dL Albumin 3.9 (3.5-5.0) g/dL Amylase 43 (30-110) U/L Lipase 66 (23-300) U/L Disposition Clinical Impression: Postoperative pain Disposition: HOME SELF-CARE Condition: Good Additional Instructions: Patient is to take 1 bottle of mag citrate. Patient should take Benefiber twice a day. Patient to increase water intake. Is patient prescribed a controlled substance at d/c from ED?: No Referrals: Maximiliano Martinez MD [Primary Care Provider] - 1-2 days Time of Disposition: 18:26
[2024-06-21] MEDS: SODIUM CHLORIDE 0.9% 500 ML 500 ML IV STA (16:35)
[2024-06-21 16:52] LABS: Basophils % (A) 1 %; Eosinophils # (A) 0.4 k/uL (0-0.7); Eosinophils % (A) 5 %; Lymphocytes # (A) 1.6 k/uL (1.0-4.8); Lymphocytes % (A) 21 %; MCHC 33.3 g/dL (31.0-37.0); MCV 93.3 fL (80.0-100.0); Mean Platelet Volume 6.9; Monocytes # (A) 0.4 k/uL (0-1.0); Monocytes % (A) 6 %; Neutrophils # (A) 4.8 k/uL (1.3-7.7); Neutrophils % (A) 64 %; Platelet Count 231 k/uL (150-450); RBC 4.82 m/uL (4.30-5.90); RDW 12.2 % (11.5-15.5); WBC 7.5 k/uL (3.8-10.6)
[2024-06-21 17:02] LABS: ALT 33 U/L (4-49); AST 27 U/L (17-59); African American GFR (CKD) >90 (>60 ml/min/1.73 sqM); Albumin 3.9 g/dL (3.5-5.0); Alkaline Phosphatase 51 U/L (38-126); Amylase 43 U/L (30-110); Anion Gap 6 mmol/L; Blood Urea Nitrogen 18 mg/dL (9-20); Calcium 9.4 mg/dL (8.4-10.2); Carbon Dioxide 25 mmol/L (22-30); Chloride 104 mmol/L (98-107); Glucose 160 mg/dL (74-99); Lipase 66 U/L (23-300); Non-African American GFR(CKD) 84 (>60 ml/min/1.73 sqM); Potassium 4.2 mmol/L (3.5-5.1); Sodium 135 mmol/L (137-145); Total Bilirubin 0.5 mg/dL (0.2-1.3); Total Protein 6.2 g/dL (6.3-8.2)
[2024-06-21] MEDS: KETOROLAC 15 MG/ML 1 ML VIAL IVP STA (17:22)
[2024-06-21 17:24] VITALS: RESP 20
[2024-06-21 18:48] VITALS: BP 151/83; PULSE 60; TEMP 98
== END 2024-06-21 18:48 | disposition home or self-care (01) ==
LOC: EC 15:53
CPT/HCPCS: 36415; 80053; 82150; 83605; 83690; 85025; 96360; 99284

== ENCOUNTER → 2024-11-11 | Outpatient (CLI) | payer MEDICARE ==
--- NOTE | 2024-11-11 09:05 | CT ---
EXAMINATION TYPE: CT brain wo con DATE OF EXAM: 11/11/2024 COMPARISON: None. CLINICAL INDICATION: Male, 84 years old with history of R41.3 amnesia; [facility], TECHNIQUE: CT of the brain performed without contrast with sagittal and coronal reformats. CT DLP: [address] CTDI: 60.3 mGy Automated exposure control for dose reduction was used. FINDINGS: There is no acute intracranial hemorrhage or midline shift identified. Mild ventricular and sulcal pr ominence. Mild to moderate low attenuation in the deep and periventricular white matter. Bilateral ap hakia is present. Moderate mucosal thickening in the right maxillary sinus. IMPRESSION: Mild diffuse age-related cerebral atrophy and mild to moderate probable chronic small ves gladis ischemic change. Right maxillary sinus disease is noted. [facility], , 11/11/2024 9:03 AM
== END | disposition home or self-care (01) ==
LOC: RADCTMAIN 08:09
PROVIDERS: ATTEND Family Medicine
DX: G31.1 Senile degeneration of brain, not elsewhere classified (principal); J32.0 Chronic maxillary sinusitis; R41.3 Other amnesia
CPT/HCPCS: 70450

== ENCOUNTER → 2025-01-01 | Outpatient (CLI) | payer MEDICARE ==
[2025-01-01 11:41] VITALS: BP 122/80; PULSE 60; RESP 16; TEMP 97.7
--- NOTE | 2025-01-01 12:07 | P.SLEEP ---
History of Present Illness DATE: 01/01/2025 CONSULTATION/NEW PATIENT EVALUATION HISTORY OF PRESENT ILLNESS/SLEEP-WAKE EVALUATION: 84-year-old gentleman had b een evaluated in the sleep center for possible obstructive sleep apnea hypopnea syndrome. SLEEP SCHEDULE: Usually sleep schedule from 1011 PM to 5:306 AM 7 days a week. FALLING ASLEEP: Problems with falling asleep. DURING SLEEP: Patient has wheezing sound during the sleep according to his . He wakes up from sleep with nocturia. No history of hypnogogical hallucinations, sleep paralysis, or cataplexy. DURING THE DAY/WAKE STATE: During the day patient has difficulties to pay attention, has problems with memory. [place] sleepiness scale is increased to 13. Patient may take up to 3 naps during the day. PAST MEDICAL HISTORY: Hypertension, diabetes mellitus, memory problems, hyperlipidemia. PAST SURGICAL HISTORY: Hernia repair, tonsillectomy. MEDICATIONS: Please see below. SOCIAL HISTORY: Please see below. FAMILY HISTORY: Please see below. REVIEW OF SYSTEMS: Memory problems, episodes of wheezing during sleep. No fevers. No double vision. No recent chest pain. No shortness of breath. No abdominal pain. No bleeding episodes. No blood in urine. No seizure episodes. PHYSICAL EXAMINATION: GENERAL: A pleasant patient without any distress. VITAL SIGNS: Please see below, weight 213 pounds, BMI 33.3. HEENT: PERRLA, EOMI. Evaluation of oropharynx showed tongue protrudes midline, low position of soft palate Mallampati 2. NECK: Supple. No JVD. Thyroid is not palpable. 10 inches in circumference. LUNGS: Clear to percussion and to auscultation. Good air exchange. No wheezing or rhonchi. HEART: S1, S2 regular. No murmurs, gallops or rubs. ABDOMEN: Soft and nontender. Bowel sounds are present. No organomegaly appreciated. EXTREMITIES: No clubbing or cyanosis. MOISTURE MACHINE TENDER: Awake, alert, and oriented x3. Cranial nerves 2 to 7 intact. There is no fasciculation or atrophy noted. No focal deficits observed. ASSESSMENT: 1. Episodes of wheezing during the sleep according to patient's . Possible obstructive sleep apnea hypopnea syndrome 2. Memory problems. 3. Hypertension. 4. Diabetes. 5 hyperlipidemia. 6 . Status post hernia repair. 7. Status post tonsillectomy. 8. Mild obesity, BMI 33.3. PLAN: 1. Polysomnography for evaluation of patient's breathing during sleep. 2. Following plan after reading sleep study. 3. Preferable position during sleep on the side. 4. No driving if patient feels any sleepiness. Patient is aware of civil and criminal liability for unsafe driving. 5. Sleep hygiene with regular sleep time for at least 7.5-8 hours. 6. Watching and losing weight. Thank you very much for referring this patient for consultation. Sincerely, Yusuf Tovar MD, PhD, FAASM. Diplomat of [employer], Sleep Medicine Board by [employer] [facility] [place] cc: Octaviano Spangler PA-C Past Medical History Past Medical History: Diabetes Mellitus, Hyperlipidemia, Hypertension Additional Past Medical History / Comment(s): Vertigo. Dry skin. Hernia right side groin, right leg neuropathy History of Any Multi-Drug Resistant Organisms: None Reported Past Surgical History: Hernia Repair Additional Past Surgical History / Comment(s): Bilateral cataract surgery. Prior hernia repair 2022 Past Anesthesia/Blood Transfusion Reactions: No Reported Reaction Additional Past Anesthesia/Blood Transfusion Reaction / Comment(s): Vertigo. Past Psychological History: No Psychological Hx Reported Additional Psychological History / Comment(s): Anxiety about vertigo. Smoking Status: Former smoker Past Alcohol Use History: None Reported Additional Past Alcohol Use History / Comment(s): Quit smoking 60 yrs ago- smoked age 22's Past Drug Use History: None Reported - Past Family History Brother(s) Family Medical History: Cancer Additional Family Medical History / Comment(s): Liver cancer. Mother Family Medical History: Hypertension, Osteoarthritis (OA) Father Family Medical History: Diabetes Mellitus Medications and Allergies Home Medications Medication Instructions Recorded Confirmed Type Atorvastatin [Lipitor] 5 mg PO HS 07/11/18 01/01/25 History Enalapril [Vasotec] 10 mg PO BID 07/11/18 01/01/25 History sitaGLIPtin [Januvia] 50 mg PO DAILY 07/11/18 01/01/25 History Hair Skin Nails (Unknown Dose) 1 tab PO DAILY 02/20/23 01/01/25 History Multivitamins, Thera [Multivitamin 1 tab PO DAILY 02/20/23 01/01/25 History (formulary)] Vitamin D (Unknown Dose) 1 tab PO BID 02/20/23 01/01/25 History Vitamin E (Unknown Dose) 1 tab PO DAILY 02/20/23 06/05/24 History Acetaminophen Tab [Tylenol] 1,000 mg PO Q6HR PRN #30 tablet 02/22/23 06/05/24 Rx Vitamin C 1 tab PO DAILY 05/29/24 01/01/25 History Vitamin K2 1 tab PO DAILY 05/29/24 06/05/24 History Acetaminophen Tab [Tylenol Tab] 1,000 mg PO Q6HR PRN #30 tablet 06/05/24 Rx Ibuprofen [Motrin] 600 mg PO Q8HR PRN #30 tab 06/05/24 Rx Simethicone [Gas-X] 125 mg PO AC-TID PRN #20 capsule 06/05/24 Rx Tamsulosin [Flomax] 0.4 mg PO DAILY #5 cap 06/05/24 Rx Meloxicam 7.5 mg PO DAILY 01/01/25 01/01/25 History Allergies Allergy/AdvReac Type Severity Reaction Status Date / Time No Known Allergies Allergy Verified 06/21/24 16:01 Physical Exam Vitals: Vital Signs Temp Pulse Resp BP Pulse Ox 01/01/25 11:39 97.7 F 60 16 122/80 98 Intake and Output 12/31/24 01/01/25 01/01/25 22:59 06:59 14:59 Other: Weight 96.615 kg Sleep Note - Sleep Data ESS Total: 13 - Sleep Note Sleep Note: Temperature: 97.7 F Pulse Rate: 60 Respiratory Rate: 16 Blood Pressure: 122/80 SpO2: 98 Height: 5 ft 7 in Weight: 96.615 kg BMI: Neck Circumference: 16
== END ==
LOC: 3 N SLEEP 11:22
PROVIDERS: ATTEND Internal Medicine
DX: R06.2 Wheezing (principal); R41.3 Other amnesia; I10 Essential (primary) hypertension; E11.9 Type 2 diabetes mellitus without complications; E78.5 Hyperlipidemia, unspecified; E66.9 Obesity, unspecified; Z68.33 Body mass index [BMI] 33.0-33.9, adult; Z98.890 Other specified postprocedural states; Z90.89 Acquired absence of other organs; Z87.891 Personal history of nicotine dependence
CPT/HCPCS: 99211

== ENCOUNTER → 2025-03-19 | Outpatient (CLI) | payer MEDICARE ==
[2025-03-19 11:40] VITALS: BP 136/78; PULSE 64; RESP 16; TEMP 97.3
--- NOTE | 2025-03-19 12:06 | P.PROGSL ---
Subjective DATE: 03/19/2025 FOLLOW UP VISIT. Patient returned to sleep center for follow-up visit to discuss results of sleep study and following plan. I discussed results of sleep study with patient and family in details. Diagnostic polysomnogram did not show significant amount of apneas or hypopneas, total apnea hypopnea index was 2.0, which is in normal range. EMG showed 64.2 periodic limb movements per hour. Previously patient indicated some sleepiness during the day with [place] Sleepiness Scale 13. Today his [place] Sleepiness Scale is 7, which is in the normal range. MEDICATIONS: Please see below During physical exam: GENERAL: A pleasant patient without any distress. VITAL SIGNS: Please see below. HEENT: PERRLA, EOMI. NECK: Supple. No JVD. LUNGS: Clear to percussion and to auscultation. Good air exchange. No wheezing or rhonchi. HEART: S1, S2 regular. ABDOMEN: Soft and nontender. EXTREMITIES: No clubbing or cyanosis. BUSINESS SERVICES SALES REPRESENTATIVE: Awake, alert, and oriented x3. No focal deficit. Impressions: 1. No significant respiratory abnormalities have been documented during the sleep test. 2. Severe periodic limb movement 64.2/h. 3. History of memory problems. 4. Hypertension. 5. Diabetes. 6. Hyperlipidemia. 7. Status post tonsillectomy. 8. Status post hernia repair. 9. Mild obesity, BMI 32.8. Plan: 1. Patient will start treatment with lowest doses of dopaminergic agonist Mirapex 0.125 mg 1 to 2 tablets at bedtime. 2. Sleep hygiene with regular time in bed for at least 8 hours. 3. Please check iron profile with ferritin level. If ferritin level less than 50 ng/mL slight iron supplement is recommended. 4. Precautions related to driving. No driving if feel any sleepiness. Patient is aware about civil and criminal liability for unsafe driving, promised to follow recommendations. 5. Follow up visit in 6 months or earlier if patient has any problems. Thank you very much for allowing me to participate in the management of your patient. Yusuf Tovar MD, PhD, FAASM. Diplomat of [employer], Sleep Medicine Board by [employer] [employer] [facility] [place] cc: Maximiliano Martinez MD, Octaviano Spangler PA-C Objective - Vital Signs Vital Signs: Vital Signs Temp 97.3 F L 07/03/25 11:39 Pulse 64 03/19/25 11:39 Resp 16 03/19/25 11:39 BP 136/78 03/19/25 11:39 Pulse Ox 95 03/19/25 11:39 FiO2 Intake & Output 03/18/25 03/19/25 03/19/25 18:59 06:59 18:59 Weight 95.254 kg Home Medications: Home Medications Medication Instructions Recorded Confirmed Type Atorvastatin [Lipitor] 5 mg PO HS 07/11/18 01/01/25 History Enalapril [Vasotec] 10 mg PO BID 07/11/18 01/01/25 History sitaGLIPtin [Januvia] 50 mg PO DAILY 07/11/18 01/01/25 History Hair Skin Nails (Unknown Dose) 1 tab PO DAILY 02/20/23 01/01/25 History Multivitamins, Thera [Multivitamin 1 tab PO DAILY 02/20/23 01/01/25 History (formulary)] Vitamin D (Unknown Dose) 1 tab PO BID 02/20/23 01/01/25 History Vitamin E (Unknown Dose) 1 tab PO DAILY 02/20/23 06/05/24 History Acetaminophen Tab [Tylenol] 1,000 mg PO Q6HR PRN #30 tablet 02/22/23 06/05/24 Rx Vitamin C 1 tab PO DAILY 05/29/24 01/01/25 History Vitamin K2 1 tab PO DAILY 05/29/24 06/05/24 History Acetaminophen Tab [Tylenol Tab] 1,000 mg PO Q6HR PRN #30 tablet 06/05/24 Rx Ibuprofen [Motrin] 600 mg PO Q8HR PRN #30 tab 06/05/24 Rx Simethicone [Gas-X] 125 mg PO AC-TID PRN #20 capsule 06/05/24 Rx Tamsulosin [Flomax] 0.4 mg PO DAILY #5 cap 06/05/24 Rx Meloxicam 7.5 mg PO DAILY 01/01/25 01/01/25 History
== END ==
LOC: 3 N SLEEP 11:23
PROVIDERS: ATTEND Internal Medicine
DX: G47.61 Periodic limb movement disorder (principal); I10 Essential (primary) hypertension; E11.9 Type 2 diabetes mellitus without complications; E78.5 Hyperlipidemia, unspecified; E66.9 Obesity, unspecified; Z68.32 Body mass index [BMI] 32.0-32.9, adult; Z90.89 Acquired absence of other organs; Z98.890 Other specified postprocedural states; Z87.891 Personal history of nicotine dependence
CPT/HCPCS: 99212